=== PATIENT | female | born 1995 | race Caucasian/White ===

== ENCOUNTER 2017-03-28 12:35 | Emergency (ER) | payer SELFPAY ==
[~2017-03-28] VITALS: Ht 162.6 cm; Wt 73.6 kg
[2017-03-28 12:43] VITALS: BP 113/63; PULSE 120; RESP 20; TEMP 97.8; O2SAT 100
[2017-03-28] MEDS ORDERED: birth control pills PO (12:50)
[2017-03-28] MEDS ORDERED: IBUPROFEN 800 MG TAB PO ONE (13:00)
[2017-03-28] MEDS ORDERED: BENZ100 PO (13:33)
[2017-03-28] MEDS ORDERED: AZIT250T3 PO (13:33)
--- NOTE | 2017-03-28 13:34 | PD ---
HPI Chief Complaint: Cold / Flu Symptoms Time Seen by Provider: 13:07 Travel History International Travel<30 days: No Contact w/Intl Traveler<30days: No Traveled to known affect area: No History of Present Illness HPI Patient 22-year-old female presents emergency Department with her friend for evaluation of cough and cold-like symptoms. Patient states his symptoms been going on for the past few weeks. She states that she her friend about the ship out for the [place] if she wanted be checked out before she went out. She denies any chest pain shortness of breath body aches nausea vomiting diarrhea or fevers. States symptoms are moderate, context as above, associated signs symptoms as above, gradually worsening. PFSH Past Medical History Medical History: Denies Significant Hx Diminished Hearing: No Immunizations Current: Yes Tetanus Vaccination: > 5 Years Influenza Vaccination: No ?: Not LMP: LAST WEEK Past Surgical History Oral Surgery: Yes Social History Alcohol Use: No Tobacco Use: No Substance Use: No Allergies-Medications (Allergen,Severity, Reaction): Coded Allergies: Penicillins (Verified Allergy, Intermediate, RASH, 03/28/17) Reported Meds & Prescriptions Reported Meds & Active Scripts Active Tessalon Perles (Benzonatate) 100 Mg Cap 100 Mg PO TID PRN Azithromycin 250 Mg Tab 250 Mg PO DIRECTED Take 2 tabs (500 mg) on day 1 then 1 tab daily x 4 days. Reported [ control pills] 1 Tab PO DAILY Review of Systems Except as stated in HPI: all other systems reviewed are Neg Physical Exam Narrative GENERAL: Well-nourished, well-developed patient. SKIN: Focused skin assessment warm/dry. HEAD: Normocephalic. EYES: No scleral icterus. No injection or drainage. ENT: TMs clear bilaterally, oropharynx clear moist. NECK: Supple, trachea midline. No JVD or lymphadenopathy. CARDIOVASCULAR: Regular rate and rhythm without murmurs, gallops, or rubs. RESPIRATORY: Breath sounds equal bilaterally. No accessory muscle use. GASTROINTESTINAL: Abdomen soft, non-tender, nondistended. MUSCULOSKELETAL: No cyanosis, or edema. BACK: Nontender without obvious deformity. No CVA tenderness. Data Data Last Documented VS Vital Signs Date Time Temp Pulse Resp B/P (MAP) Pulse Ox O2 Delivery O2 Flow Rate FiO2 03/28/17 13:49 96 16 95 03/28/17 12:43 97.8 113/63 (80) Orders Orders Influenzae A/B Antigen (03/28/17 12:48) Ibuprofen (Motrin) (03/28/17 13:00) Ed Discharge Order (03/28/17 13:35) MDM Medical Decision Making Medical Screen Exam Complete: Yes Emergency Medical Condition: Yes Differential Diagnosis URI, flu, strep throat unlikely. Narrative Course Patient roomed emergency department, strep throat highly unlikely secondary to low Centor score. Influenza test negative, she appears well and in obvious distress, discussed symptomatically management returned ED criteria. She stable for discharge. Diagnosis Primary Impression: URI (upper respiratory infection) Additional Impression: Cough Med/Other Pt SpecificInfo: Prescription(s) given Scripts Benzonatate (Tessalon Perles) 100 Mg Cap 100 MG PO TID Y for COUGH, #20 CAP 0 Refills Prov: Lewis Mckeon MD 03/28/17 Azithromycin (Azithromycin) 250 Mg Tab 250 MG PO DIRECTED for Infection, #6 TAB 0 Refills Take 2 tabs (500 mg) on day 1 then 1 tab daily x 4 days. Prov: Lewis Mckeon MD 03/28/17 Disposition: 01 DISCHARGE HOME Condition: Stable Lewis Mckeon MD Mar 28, 2017 13:34
== END 2017-03-28 13:49 | disposition home or self-care (01) ==
LOC: PHEFT 12:35
DX: J06.9 Acute upper respiratory infection, unspecified (principal); R05 Cough; Z88.0 Allergy status to penicillin
CPT/HCPCS: 87804; 99284